=== PATIENT | male | born 1965 ===

== ENCOUNTER 2018-07-10 07:45 | Inpatient (IN) | payer BC, OTHER ==
[2018-07-10] VITALS (14 sets, daily range): BP systolic 116–142; BP diastolic 63–96
[~2018-07-10] VITALS: Ht 175.3 cm; Wt 102.1 kg
[2018-07-10] MEDS ORDERED: Bacitracin 50000 Units Vial ONE ×2 (07:58→12:03)
[2018-07-10] MEDS ORDERED: NeoSporin Gu Irrig 1ml Amp IRRIG ONE ×2 (07:58→12:04)
[2018-07-10] MEDS ORDERED: LISINOPRIL20 MG ORAL (08:35)
[2018-07-10] MEDS ORDERED: BISOPROLOL-HCT1 EAC1 PO (08:35)
[2018-07-10] MEDS ORDERED: CRESTOR10 M2 ORAL (08:35)
--- NOTE | 2018-07-10 09:25 | Anethesia Preoperative Eval ---
Anesthesia Pre-op PMH/ROS General Date of Evaluation: July 10, 2018 Anesthesiologist: Ziyad ASA Score: ASA 2 Mallampati Score Class I : Soft palate, uvula, fauces, pillars visible Class II: Soft palate, uvula, fauces visible Class III: Soft palate, base of uvula visible Class IV: Only hard plate visible Mallampati Classification: Class II Surgeon: Chris Diagnosis: Left knee OA Surgical Procedure: Left TKR Anesthesia History: none Family History: no anesthesia problems Allergies: Coded Allergies: No Known Allergies (Unverified , 07/10/18) Medications: see eMAR Patient NPO?: Yes NPO Date: July 09, 2018 NPO Time: 2300 Past Medical History Cardiovascular: Reports: HTN, other - HLD; Denies: CAD, MT, valve dz, arrhythmia Pulmonary: Denies: asthma, COPD, FESTUS, other Gastrointestinal/Genitourinary: Denies: GERD, CRI, ESRD, other Neurologic/Psychiatric: Denies: dementia, CVA, depression/anxiety, TIA, other Endocrine: Denies: DM, hypothyroidism, steroids, other HEENT: Denies: cataract (L), cataract (R), glaucoma, MARY'S IGLOO (L), MARY'S IGLOO (R), other Hematology/Immune: Denies: anemia, DVT, bleeding disorder, other Musculoskeletal/Integumentary: Reports: OA, other - LBP; Denies: RA, DJD, DDD, edema PSxH Narrative: Left IHR, lap appy, left knee sx Anesthesia Pre-op Phys. Exam Physician Exam Last Vital Signs Date Time Temp Pulse Resp B/P (MAP) Pulse Ox O2 Delivery O2 Flow Rate FiO2 07/10/18 08:38 97.2 66 18 142/96 (111) 99 07/10/18 08:26 Room Air Constitutional: NAD Cardiovascular: RRR Respiratory: CTA Airway Exam Mallampati Score: Class II MO: full ROM: full Teeth: intact Anesthesia Pre-op A/P Labs see chart Studies Pre-op Studies: EKG - sr Risk Assessment & Plan Assessment: ASA II Plan: GA with SAB Status Change Before Surgery: No Pre-Antibiotics Drug: Ancef 2g Given Within 1 Hr of Incision: Yes Jeniffer Carlos MD July 10, 2018 09:25
[2018-07-10] MEDS ORDERED: Lidocaine 1% MPF 10mg/ml 5ml ONE (09:26)
[2018-07-10] MEDS ORDERED: Midazolam 2mg/2ml Inj ONE ×2 (09:26→10:03)
[2018-07-10] MEDS ORDERED: Propofol 200mg/20ml IV ONE (09:26)
[2018-07-10] MEDS ORDERED: fentaNYL 100 mcg/2 mL IV ONE (09:26)
[2018-07-10] MEDS ORDERED: Morphine Sulfate PF 10 ML ONE (09:40)
[2018-07-10] MEDS ORDERED: cloNIDine 1000mcg/10ml inj ONE (09:40)
[2018-07-10] MEDS ORDERED: NS Irrig 1000ml IRRIG ONE ×2 (09:45→12:08)
--- NOTE | 2018-07-10 09:59 | Pre-Procedure Note/Attestation ---
Pre-Procedure Note/Attestation Complete Prior to Procedure Planned Procedure: left Procedure Narrative: left knee replacmenet Indications for Procedure Pre-Operative Diagnosis: left knee arthritis Attestation I attest that I discussed the nature of the procedure; its benefits; risks and complications; and alternatives (and the risks and benefits of such alternatives ), prior to the procedure, with the patient (or the patient's legal advertising account representative). I attest that, if there was a reasonable possibility of needing a blood transfusion, the patient (or the patient's legal advertising account representative) was given the [facility] [place] [facility] standardized written summary, pursuant to the [place] Blood Safety Act ([place] Health and Safety Code # 1645, as amended). I attest that I re-evaluated the patient just prior to the surgery and that there has been no change in the patient's H&P, except as documented below: Yaya Perez MD July 10, 2018 09:59
[2018-07-10] MEDS ORDERED: Morphine Sulfate 2mg/ml Inj(IV/IM USE ONLY) IVP PRN (10:00)
[2018-07-10] MEDS ORDERED: Sterile Water Irrig 1000ml IRRIG ONE (10:00)
[2018-07-10] MEDS ORDERED: LR 1000ml ONE (10:00)
--- NOTE | 2018-07-10 10:00 | Brief Operative Note ---
Immediate Post Operative Note Operative Note Pre-op Diagnosis: left knee arthritis Procedure: left knee arthritis Post-op Diagnosis: left knee arthritis Post-op Diagnosis: same as pre-op Findings: consistent w/pre-op dx studies Surgeon: marcin Anesthesia: general Specimen: none Complications: none Condition: stable Fluids: y Estimated Blood Loss: minimal Implant(s) used?: Yes Yaya Perez MD July 10, 2018 10:00
[2018-07-10] MEDS ORDERED: LR 1000ml 1,000 ML IVLG SCH (10:34)
[2018-07-10] MEDS ORDERED: Dexamethasone 4mg/ml vial ONE (10:35)
[2018-07-10] MEDS ORDERED: Metoclopramide 10mg/2ml Inj ONE (10:35)
[2018-07-10] MEDS ORDERED: Ketorolac 30mg Inj ONE (10:35)
[2018-07-10] MEDS ORDERED: fentaNYL 100 mcg/2 mL IV PRN (10:45)
[2018-07-10] MEDS ORDERED: Midazolam 2mg/2ml Inj IVP PRN (10:45)
[2018-07-10] MEDS ORDERED: Metoclopramide 10mg/2ml Inj IVP PRN (10:45)
[2018-07-10] MEDS ORDERED: DiphenhydrAMINE 50mg/ml Inj IVP PRN (10:45)
[2018-07-10] MEDS ORDERED: LORazepam Inj 2mg/ml 1ml IV PRN (10:45)
[2018-07-10] MEDS ORDERED: Hydromorphone 0.5mg/0.5ml inj IVP PRN (10:45)
--- NOTE | 2018-07-10 12:02 | Diagnostic Imaging Report ---
Indication: Preoperative, pain Technique: 3 views of the left knee Comparison: None Findings: Surgical screws are seen in the distal femur and proximal tibia, consistent with prior anterior cruciate ligament repair. There is extensive degenerative narrowing involving the medial, lateral, and patellofemoral compartments as well as extensive osteophyte formation. No definite suprapatellar effusion. No acute fractures. No dislocations. Impression: No definite acute process Extensive degenerative changes, as described Postsurgical changes, as described
--- NOTE | 2018-07-10 12:54 | Immediate Post-Op Evaluation ---
Immediate Post-Op Evalulation Immediate Post-Op Evalulation Procedure: Left TKR Date of Evaluation: July 10, 2018 Time of Evaluation: 12:54 IV Fluids: 1.8L Blood Products: 0 Estimated Blood Loss: 150 Urinary Output: 300 Blood Pressure Systolic: 120 Blood Pressure Diastolic: 68 Pulse Rate: 70 Respiratory Rate: 16 O2 Sat by Pulse Oximetry: 100 Temperature (Fahrenheit): 97.1 Pain Score (1-10): 0 Nausea: No Vomiting: No Complications 0 Patient Status: awake, reacts, patent, none Hydration Status: adequate Drug: Ancef 2g Given Within 1 Hr of Incision: Yes Jeniffer Carlos MD July 10, 2018 12:54
--- NOTE | 2018-07-10 14:32 | NUR ---
NURSE NOTES: Patient has good circulation on bilateral lower extremities, capillary refill<3 seconds, is able to feel sensation above the mid thigh, no movement yet.
--- NOTE | 2018-07-10 14:32 | NUR ---
NURSE NOTES: Patient arrived on unit via hospital bed. Stable. Denies pain or SOB. IV fluids running as ordered. Skin is clean, dry, and intact. Surgical dressing clean, dry, and intact. Knee immobilizer in place, ice pack on surgical site as ordered. Patient is in good spirits. Patient oriented to room, unit, and call light. Patient is in encouraged to use call light for assistance, verbalized understanding. Patient's son has all belongings. Patient is in bed in locked and lowest position with call light within reach. Will continue to monitor.
--- NOTE | 2018-07-10 14:50 | NUR ---
NURSE NOTES: Spoke to Dr. Moreno on the phone, he will be in to see patient today and will give orders after he rounds.
--- NOTE | 2018-07-10 15:33 | NUR ---
NURSE NOTES: CPM in place as ordered. Will continue to monitor patient.
--- NOTE | 2018-07-10 15:37 | NUR ---
NURSE NOTES: Patient tolerated liquids, will advance to regular as tolerated.
--- NOTE | 2018-07-10 16:00 | NUR ---
NURSE NOTES: Capillary refill <3 seconds on bilateral lower extremities. Patient can feel sensation above mid thigh. Patient unable to move lower extremities. PT will see patient.
--- NOTE | 2018-07-10 16:00 | NUR ---
NURSE NOTES: Capillary refill <3 seconds on bilateral lower extremities. Patient has sensation in bilateral lower extremities. Patient is able to move both feet and legs. Will continue CPM. Addendum: 07/10/18 at 1746 by SAÚL BOYD RN wrong time, Note for 07/10/18 at 17:45.
[2018-07-10] MEDS: D5 1/2NS w/KCl 20mEq 1,000 ML IV SCH (16:14)
--- NOTE | 2018-07-10 16:55 | NUR ---
P.T Note: Order for CPM received POD #0 at 0-60 deg. Neuro checked : anaesthesia still in effect as patient reports of BLE feeling " numb and no power to move" . Assisted patient into sitting and dangling position at EOB prior to putting the CPM. Pt unable tolerate sitting not more than 2 min due to c/o dizziness and nausea but no vomiting episode . Pt assisted back to bed : vitals taken and were stable. dizziness and nausea subsided over time. CPM set up to 0-60 deg. to L knee and tolerating well.CPM endorsed to nursing at the end of P.T shift. CPM to be removed after 4-6 hrs of use.
[2018-07-10] MEDS: ceFAZolin sod 1 GM in D5W 55 ML IV SCH (17:52)
--- NOTE | 2018-07-10 18:01 | NUR ---
CASE MANAGEMENT:REVIEW 53 YR OLD MALE HERE FOR ELECTIVE SURGERY SI: LT KNEE ARTHRITIS IS: TO SURGERY FOR: TOTAL KNEE REPLACEMENT : TO MED/SURG [facility]
--- NOTE | 2018-07-10 18:03 | Diagnostic Imaging Report ---
Indication: Postoperative; history knee pain Technique: 3 views of the left knee Comparison: 07/10/2017 Findings: Interim placement of a left knee arthroplasty, with satisfactory anatomic alignment. There is a surgical drain in place. There are overlying skin dontae. Retained air from the surgical exposure is seen within soft tissues Impression: Postoperative left knee. No unusual features
--- NOTE | 2018-07-10 18:55 | NUR ---
CHARGE NURSE NOTE: 5 hrs hemovac. output 400 ml. was called, message left.
--- NOTE | 2018-07-10 19:13 | NUR ---
NURSE NOTES: Spoke to Dr. Vega on the phone about hemovac output. said it is an expected amount due to the procedure and that the patient will be expected to have a lot of output. No new orders. Patient is stable.
--- NOTE | 2018-07-10 19:30 | NUR ---
HAND-OFF: Report given to Nhan RN. Patient is stable.
--- NOTE | 2018-07-10 20:05 | NUR ---
NURSE NOTES: Pt is in bed, awake and alert. No acute distress noted. Pt's Hemovac on left knee surgical site is draining heavily, sanguinous output ( 400ml 0ver last 5 hours). Dressing is stained with scant amount of blood. Dr. Rodgers and Dr. Moreno notified. Dr. Moreno came to see pt. Ordered cbc and cmp, lab called to draw blood. Dressing will be monitored. Pt is off CPM machine now and knee immobilizer applied, CSM intact, pt able to wiggle toes. Pt on room air. No pain reported. Pt is instructed to call for assistance before getting out of bed, bed locked low in position,side rails up and call light within reach. Pt will be monitored.
--- NOTE | 2018-07-10 20:07 | Cardiology Progress Note ---
Assessment/Plan Assessment/Plan monitor for bleeding repeat cbc tonite and in am watch bp told to stand up slowly in am [id number] Objective Last 24 Hour Vital Signs Date Time Temp Pulse Resp B/P (MAP) Pulse Ox O2 Delivery O2 Flow Rate FiO2 07/10/18 16:00 98.0 74 17 121/75 (90) 96 07/10/18 15:00 97.7 70 17 127/78 (94) 99 07/10/18 14:30 97.6 66 17 127/75 (92) 99 07/10/18 14:15 97.4 64 18 119/72 99 Nasal Cannula 3 07/10/18 14:00 61 15 116/69 100 Nasal Cannula 3 07/10/18 13:45 60 16 120/67 100 Nasal Cannula 3 07/10/18 13:30 64 13 117/63 100 Nasal Cannula 3 07/10/18 13:20 65 15 123/70 100 Simple Mask 6 07/10/18 13:10 68 16 120/72 100 Simple Mask 6 07/10/18 13:00 71 14 122/70 100 Simple Mask 6 07/10/18 12:55 69 15 117/69 100 Simple Mask 6 07/10/18 12:54 70 16 100 07/10/18 12:49 97.1 70 16 120/68 100 Simple Mask 6 07/10/18 08:38 97.2 66 18 142/96 (111) 99 07/10/18 08:26 Room Air Ilia Moreno MD July 10, 2018 20:07
[2018-07-10 21:25] LABS: HEMATOCRIT 34.8 % (42.0-52.0); HEMOGLOBIN 12.5 G/DL (14.2-18.0); MEAN CORPUSCULAR VOLUME 81 FL (80-99); PLATELET COUNT 136 K/UL (150-450); RED BLOOD COUNT 4.29 M/UL (4.70-6.10); RED CELL DISTRIBUTION WIDTH 11.2 % (11.6-14.8); WHITE BLOOD COUNT 12.5 K/UL (4.8-10.8)
--- NOTE | 2018-07-10 21:30 | Consultation ---
DATE OF CONSULTATION: 07/10/2018 CARDIOLOGY CONSULTATION CONSULTING PHYSICIAN: Ilia Moreno M.D. REFERRING PHYSICIAN: Yaya Perez M.D. REASON FOR REFERRAL: Postoperative medical care. HISTORY OF PRESENT ILLNESS: This is a young gentleman 53-year-old who has undergone knee surgery by Dr. Vega and is being seen postoperatively. Denies any chest pain or shortness of breath. No palpitations. He was dizzy when he first tried to get up earlier today and subsequently when he sat up to eat, he was also dizzy and nauseated but no palpitation. No dizziness. No prior heart condition. PAST MEDICAL HISTORY: Positive for high blood pressure and high cholesterol. Denies others. ALLERGIES: No allergies to medications. SOCIAL HISTORY: He does not smoke, drink, or use drugs. REVIEW OF SYSTEMS: GASTROINTESTINAL: Did have some nausea. No vomiting. No bowel movements yet. GENITOURINARY: Negative. PULMONARY: Negative. CONSTITUTIONAL: Negative. NEUROLOGICAL: Negative. In fact, he feels much better now than he did prior to the surgery probably because of effects of the pain medication. PHYSICAL EXAMINATION: GENERAL: Shows to be a young gentleman, in no respiratory distress, lying down flat. NECK: Supple. No jugular venous distention. LUNGS: Clear to auscultation. CARDIAC: S1 is normal. S2 is normal. Regular rate and rhythm. No heaves, thrills, gallops, or rubs are noted. ABDOMEN: Soft, nontender. Positive bowel sounds. EXTREMITIES: There is no clubbing, cyanosis, edema. Left leg is dressed. There is some area of blood overlying the knee area. Also noted some bloody fluid in the drain. NEUROLOGICAL: Awake and responsive. ASSESSMENT AND PLAN: 1. Left knee osteoarthritis, end-stage now status post arthroplasty. 2. Hypertension. 3. Hyperlipidemia. 4. Postoperative bleeding. The patient will be monitored. Hemoglobin will be serially evaluated. The patient will have chemistries tonight as well as tomorrow morning. His drain is being monitored by the nursing staff and will contact with Dr. Vega, who is aware of bleeding. DVT prophylaxis will be initiated once the patient's bleeding status improves hopefully within next 24 hours or so. His usual medications from home will be continued as needed for the time being including his blood pressure medication once his blood pressure is stable and increase. Ilia Moreno M.D. DR: Negar JOB#: [id number] CC:
[2018-07-10 21:42] LABS: ALANINE AMINOTRANSFERASE 22 U/L (12-78); ALBUMIN 3.4 G/DL (3.4-5.0); ALBUMIN/GLOBULIN RATIO 1.4 (1.0-2.7); ALKALINE PHOSPHATASE 42 U/L (46-116); ANION GAP 5 mmol/L (5-15); ASPARTATE AMINO TRANSFERASE 22 U/L (15-37); BILIRUBIN,TOTAL 0.5 MG/DL (0.2-1.0); BLOOD UREA NITROGEN 21 mg/dL (7-18); CALCIUM 8.3 MG/DL (8.5-10.1); CARBON DIOXIDE 26 MMOL/L (21-32); CHLORIDE 103 MMOL/L (98-107); CREATININE 0.9 MG/DL (0.55-1.30); POTASSIUM 4.2 MMOL/L (3.5-5.1); SODIUM 134 MMOL/L (136-145)
[2018-07-11] VITALS: BP 143/84
--- NOTE | 2018-07-11 | NUR ---
NURSE NOTES: Pt is in bed, awake and verbal. No acute distress noted. Hemovac out put has slowed now, 50ml sanguinous output. Surgical site has no further bleeding, dressing is intact. HGB 12.5. Pt reports feeling " great". Pt is able to wiggle toes. Knee immobilizer in place. Pt has Physical therapy in the morning.
[2018-07-11] MEDS: ceFAZolin sod 1 GM in D5W 55 ML IV SCH (00:44)
[2018-07-11 04:00] VITALS: BP 124/80
[2018-07-11] MEDS: D5 1/2NS w/KCl 20mEq 1,000 ML IV SCH ×2 (05:26→20:16)
--- NOTE | 2018-07-11 06:00 | NUR ---
NURSE NOTES: Total Hemovac output during this shift is 100ml. Dressing dry and intact.
[2018-07-11 06:39] LABS: INR 1.1 (0.9-1.1)
[2018-07-11 06:47] LABS: ANION GAP 7 mmol/L (5-15); BLOOD UREA NITROGEN 18 mg/dL (7-18); CALCIUM 8.4 MG/DL (8.5-10.1); CARBON DIOXIDE 26 MMOL/L (21-32); CHLORIDE 103 MMOL/L (98-107); POTASSIUM 4.3 MMOL/L (3.5-5.1); SODIUM 136 MMOL/L (136-145)
[2018-07-11 07:00] LABS: BASOPHILS % (AUTO) 0.1 % (0.0-2.0); HEMATOCRIT 31.2 % (42.0-52.0); LYMPHOCYTES % (AUTO) 10.1 % (20.0-45.0); MEAN CORPUSCULAR VOLUME 84 FL (80-99); MONOCYTES % (AUTO) 12.2 % (1.0-10.0); NEUTROPHILS % (AUTO) 77.6 % (45.0-75.0); PLATELET COUNT 138 K/UL (150-450); RED BLOOD COUNT 3.72 M/UL (4.70-6.10); RED CELL DISTRIBUTION WIDTH 11.8 % (11.6-14.8); WHITE BLOOD COUNT 12.3 K/UL (4.8-10.8)
[2018-07-11] MEDS: HYDROcodone/Acetamin 7.5/325 tab ORAL PRN (07:01)
--- NOTE | 2018-07-11 07:20 | NUR ---
HAND-OFF: Report given to Anthony Ba RN.
--- NOTE | 2018-07-11 07:30 | NUR ---
NURSE NOTES: Received report from Nhan RN. Patient is awake alert and oriented x4, no acute distress noted. IV intact, running IVF per order. Patient is reporting pain is well managed at this time. Ice pack applied to left knee. Noted staining on left knee dressing, per report staining is from post-operative bleeding from yesterday (07-10-18). No fresh blood noted. Hemovac compressed. Side rails upx3, bed low and locked, call light in reach. Will continue to monitor.
[2018-07-11 08:00] VITALS: BP 138/96
--- NOTE | 2018-07-11 08:32 | 48 Hour Post Anesthesia Eval ---
Post Anesthesia Evaluation Procedure: Left TKR Date of Evaluation: July 11, 2018 Airway: patent Nausea: No Vomiting: No Pain Intensity: 2 Hydration Status: adequate Cardiopulmonary Status: at baseline Mental Status/LOC: patient returned to baseline Post-Anesthesia Complications: 0 Follow-up care needed: N/A - further care as per [facility] team Jeniffer Carlos MD July 11, 2018 08:32
--- NOTE | 2018-07-11 08:48 | NUR ---
NURSE NOTES: Called Dr. Moreno and informed MD of patient's platelet count and elevated WBC. MD stated ok to give lovenox as ordered. MD also ordered to d/c schulz catheter. Will enter order and carry out.
[2018-07-11] MEDS ORDERED: Enoxaparin 40mg Inj SUBQ SCH (09:00)
--- NOTE | 2018-07-11 09:00 | NUR ---
NURSE NOTES: Anderson catheter removed per MD order. Patient tolerated well. Will follow up to make sure patient voids within 4-6 hours.
--- NOTE | 2018-07-11 10:11 | NUR ---
P.T Note: P.T evaluation completed and treatment initiated per TKR protocol. Pt is alert, O x4 , pleasant and cooperative. Pt had no c/o major pain but soreness on L the L knee rated as 2/10. Neuro checked: 100% return motor and sensory on BLE from anesthetics. Vitals stable. NO c/o nausea/dizziness. Pt currently require SBA X 1 for all bed mobility , transfers and gait/ambulation activities using the FFW. Educated on TKR exercise protocol, safety and proper mobility techniques with good return demonstration. Pt will be seen BID daily until NC. Recommend home P.T and eventually OP rehab with DME to include FWW and raised toilet seat at NC. Thank you for this referral.
[2018-07-11 12:00] VITALS: BP 143/90
[2018-07-11] MEDS: Morphine Sulfate 4mg/ml Inj (IV USE ONLY) IVP PRN ×3 (12:50→22:25)
--- NOTE | 2018-07-11 15:00 | NUR ---
NURSE NOTES: Patient voided clear, yellow urine. No difficulty with voiding reported.
--- NOTE | 2018-07-11 15:48 | NUR ---
NURSE NOTES: Walked into patient's room and noted that hemovac was sitting on table, patient reports hemovac came out. Patient stated he does not know how hemovac came out. Called the office of Dr. Perez and reported findings to dental office coordinator Mary. water engineer stated she will inform Dr. Perez and MD will call back. Callback number given. Will await callback with further orders.
[2018-07-11 16:00] VITALS: BP 155/93
--- NOTE | 2018-07-11 19:39 | NUR ---
NURSE NOTES: Did not receive callback from Dr. Perez regarding hemovac coming out. Called Dr. Moreno and reported that hemovac came out today sometime between 1530 and 1600. ordered for a STAT CBC and stated he will attempt to contact Dr. Perez. Will endorse to retail shift leader nurse.
--- NOTE | 2018-07-11 19:54 | NUR ---
HAND-OFF: Report given to Chasity AMARAL. Patient is in stable stable condition. Endorsed plan of care and orders from Dr. Moreno.
[2018-07-11 20:40] LABS: BASOPHILS % (AUTO) 0.5 % (0.0-2.0); HEMATOCRIT 27.2 % (42.0-52.0); HEMOGLOBIN 9.9 G/DL (14.2-18.0); LYMPHOCYTES % (AUTO) 16.7 % (20.0-45.0); MEAN CORPUSCULAR VOLUME 83 FL (80-99); NEUTROPHILS % (AUTO) 70.7 % (45.0-75.0); PLATELET COUNT 122 K/UL (150-450); RED BLOOD COUNT 3.29 M/UL (4.70-6.10); RED CELL DISTRIBUTION WIDTH 11.7 % (11.6-14.8); WHITE BLOOD COUNT 9.2 K/UL (4.8-10.8)
--- NOTE | 2018-07-11 20:41 | Cardiology Progress Note ---
Assessment/Plan Assessment/Plan 1. Left knee osteoarthritis, end-stage now status post arthroplasty. 2. Hypertension. 3. Hyperlipidemia. 4. Postoperative bleeding. wound vac slipped out dr john aware i just discussed with him personally as well dc lovenox repeat cbc pneumatic stockign / boots d/w rn Subjective Cardiovascular: Denies: chest pain, lightheadedness, palpitations Respiratory: Denies: shortness of breath Gastrointestinal/Abdominal: Denies: abdominal pain Genitourinary: Denies: burning Subjective knee pain Objective Last 24 Hour Vital Signs Date Time Temp Pulse Resp B/P (MAP) Pulse Ox O2 Delivery O2 Flow Rate FiO2 07/11/18 18:28 98.0 07/11/18 16:00 98.0 100 20 155/93 (113) 100 07/11/18 12:00 97.9 91 20 143/90 (107) 100 07/11/18 09:00 Room Air 07/11/18 08:00 98.2 78 20 138/96 (110) 99 07/11/18 04:00 97.4 74 16 124/80 (95) 96 07/11/18 00:00 97.9 79 16 143/84 (103) 94 General Appearance: no apparent distress, alert Neck: supple Cardiovascular: normal rate Respiratory/Chest: lungs clear Abdomen: normal bowel sounds, non tender, soft Extremities: no swelling, other - left leg dressing seem clean Intake and Output 07/10/18 07/11/18 19:00 07:00 Intake Total 2175 ml 975 ml Output Total 1525 ml Balance 650 ml 975 ml IV Total 2175 ml 975 ml Output Urine Total 675 ml Drainage Total 700 ml Estimated Blood Loss 150 ml # Voids 1 Laboratory Tests Test 07/10/18 21:10 07/11/18 05:20 07/11/18 20:15 White Blood Count 12.5 K/UL (4.8-10.8) H 12.3 K/UL (4.8-10.8) H Pending Red Blood Count 4.29 M/UL (4.70-6.10) L 3.72 M/UL (4.70-6.10) L Pending Hemoglobin 12.5 G/DL (14.2-18.0) L 11.0 G/DL (14.2-18.0) L Pending Hematocrit 34.8 % (42.0-52.0) L 31.2 % (42.0-52.0) L Pending Mean Corpuscular Volume 81 FL (80-99) 84 FL (80-99) Pending Mean Corpuscular Hemoglobin 29.0 PG (27.0-31.0) 29.5 PG (27.0-31.0) Pending Mean Corpuscular Hemoglobin Concent 35.8 G/DL (32.0-36.0) 35.2 G/DL (32.0-36.0) Pending Red Cell Distribution Width 11.2 % (11.6-14.8) L 11.8 % (11.6-14.8) Pending Platelet Count 136 K/UL (150-450) L 138 K/UL (150-450) L Pending Mean Platelet Volume 5.6 FL (6.5-10.1) L 6.6 FL (6.5-10.1) Pending Neutrophils (%) (Auto) % (45.0-75.0) 77.6 % (45.0-75.0) H Pending Lymphocytes (%) (Auto) % (20.0-45.0) 10.1 % (20.0-45.0) L Pending Monocytes (%) (Auto) % (1.0-10.0) 12.2 % (1.0-10.0) H Pending Eosinophils (%) (Auto) % (0.0-3.0) 0.0 % (0.0-3.0) Pending Basophils (%) (Auto) % (0.0-2.0) 0.1 % (0.0-2.0) Pending Differential Total Cells Counted 100 Neutrophils % (Manual) 92 % (45-75) H Lymphocytes % (Manual) 7 % (20-45) L Monocytes % (Manual) 1 % (1-10) Eosinophils % (Manual) 0 % (0-3) Basophils % (Manual) 0 % (0-2) Band Neutrophils 0 % (0-8) Platelet Estimate Decreased L Platelet Morphology Normal Red Blood Cell Morphology Normal Sodium Level 134 MMOL/L (136-145) L 136 MMOL/L (136-145) Potassium Level 4.2 MMOL/L (3.5-5.1) 4.3 MMOL/L (3.5-5.1) Chloride Level 103 MMOL/L (98-107) 103 MMOL/L (98-107) Carbon Dioxide Level 26 MMOL/L (21-32) 26 MMOL/L (21-32) Anion Gap 5 mmol/L (5-15) 7 mmol/L (5-15) Blood Urea Nitrogen 21 mg/dL (7-18) H 18 mg/dL (7-18) Creatinine 0.9 MG/DL (0.55-1.30) 1.0 MG/DL (0.55-1.30) Estimat Glomerular Filtration Rate > 60 mL/min (>60) > 60 mL/min (>60) Glucose Level 179 MG/DL (74-106) H 129 MG/DL (74-106) H Calcium Level 8.3 MG/DL (8.5-10.1) L 8.4 MG/DL (8.5-10.1) L Total Bilirubin 0.5 MG/DL (0.2-1.0) Aspartate Amino Transf (AST/SGOT) 22 U/L (15-37) Alanine Aminotransferase (ALT/SGPT) 22 U/L (12-78) Alkaline Phosphatase 42 U/L (46-116) L Total Protein 5.9 G/DL (6.4-8.2) L Albumin 3.4 G/DL (3.4-5.0) Globulin 2.5 g/dL Albumin/Globulin Ratio 1.4 (1.0-2.7) Prothrombin Time 11.8 SEC (9.30-11.50) H Prothromb Time International Ratio 1.1 (0.9-1.1) Ilia Moreno MD July 11, 2018 20:41
--- NOTE | 2018-07-11 20:46 | NUR ---
NURSE NOTES:Patient seen by DR Moreno with new orders.
[2018-07-11] MEDS: Lisinopril 10mg tab ORAL SCH (21:08)
--- NOTE | 2018-07-11 21:27 | NUR ---
NURSE NOTES:Call Ilia Bangura read the Lab result WBC 9.2 Hgb 9.9 HCT 27.2. with new orders repeat cbc in am
[2018-07-12] MEDS: Morphine Sulfate 4mg/ml Inj (IV USE ONLY) IVP PRN ×3 (03:12→12:45)
--- NOTE | 2018-07-12 05:12 | NUR ---
NURSE NOTES: Patient left knee dressing changed .
[2018-07-12 06:30] LABS: BASOPHILS % (AUTO) 0.3 % (0.0-2.0); HEMATOCRIT 27.9 % (42.0-52.0); HEMOGLOBIN 9.7 G/DL (14.2-18.0); LYMPHOCYTES % (AUTO) 11.1 % (20.0-45.0); MEAN CORPUSCULAR VOLUME 84 FL (80-99); MONOCYTES % (AUTO) 12.8 % (1.0-10.0); NEUTROPHILS % (AUTO) 75.8 % (45.0-75.0); PLATELET COUNT 127 K/UL (150-450); RED BLOOD COUNT 3.31 M/UL (4.70-6.10); WHITE BLOOD COUNT 10.4 K/UL (4.8-10.8)
[2018-07-12 06:31] LABS: INR 1.1 (0.9-1.1)
--- NOTE | 2018-07-12 07:45 | NUR ---
NURSE NOTES: Received report from Chasity AMARAL. Patient is awake alert and oriented x4, no acute distress noted. Patient is reporting pain in left knee, will medicate per order. Noted stain on left knee dressing, circled, dated and timed. IV intact and asymptomatic. SCD on right leg, ice on left knee. Side rails upx3, bed low and locked, call light in reach. Will continue to monitor.
--- NOTE | 2018-07-12 07:46 | NUR ---
HAND-OFF: Report given to Tara Randolph
[2018-07-12 08:00] VITALS: BP 135/88
[2018-07-12] MEDS: Lisinopril 10mg tab ORAL SCH (08:58)
--- NOTE | 2018-07-12 11:50 | NUR ---
CASE MANAGEMENT:REVIEW 07/12/18 SI: POD #2 S/P LEFT KNEE ARTHROPLASTY H/H-9.7/27.9 PLT-127 IS: LISINOPRIL PO QD IV MORPHINE Q4HRS PRN : MED/SURG STATUS 3 EAST DCP; FROM HOME
[2018-07-12 12:00] VITALS: BP 123/81
--- NOTE | 2018-07-12 12:50 | NUR ---
NURSE NOTES: Noted increased staining on left knee dressing. Drainage is serosanguinous, no foul odor noted. Circled staining. Left knee remains mildly swollen, no swelling in calf noted, Homans sign negative bilaterally. Will continue to monitor.
--- NOTE | 2018-07-12 14:49 | General Progress Note ---
Progress Note Progress Note doing well neurovasc intact hemovac out knee slight sweeling dressing change today continue therapy Yaya Perez MD July 12, 2018 14:49
[2018-07-12] MEDS ORDERED: Ketorolac 30mg Inj IV ONE (15:00)
[2018-07-12] MEDS ORDERED: Ketorolac 30mg Inj IV SCH (15:15)
--- NOTE | 2018-07-12 15:58 | NUR ---
HAND-OFF: Report given to Reyna NUÑEZ. Patient is in stable condition. Endorsed plan of care and endorsed toradol reassessment.
[2018-07-12 16:00] VITALS: BP 134/75
--- NOTE | 2018-07-12 16:00 | NUR ---
NURSE NOTES: Report received from Tara NUÑEZ, rounds made. Patient resting in semi-fowlers position in bed. No c/o of SOB on RA, no NV. Pain to left knee 07/22, denies need for pain medication at this time. Ice pack to left knee. Bilateral SCDs on. CMS +, skin warm, wiggles, pedal pulses palpable, no NT. Left knee dressing with shadow drainage, outlined. Encouraged IS. Reinforced call light. Bed in lowest position, will continue to monitor.
[2018-07-12] MEDS: HYDROcodone/Acetamin 7.5/325 tab ORAL PRN ×2 (18:46→22:36)
--- NOTE | 2018-07-12 19:30 | Cardiology Progress Note ---
Assessment/Plan Assessment/Plan 1. Left knee osteoarthritis, end-stage now status post arthroplasty. 2. Hypertension. 3. Hyperlipidemia. 4. Postoperative bleeding. wound vac slipped out yes dr dora milleruated pt today dc lovenox to resum tomorrow if hgb stable repeat cbcin , stablizzed as of this am pneumatic stockign / boots d/w rn bp loks good mild lwo greade fever Subjective Cardiovascular: Reports: lightheadedness - min ; Denies: chest pain, palpitations Respiratory: Denies: shortness of breath Gastrointestinal/Abdominal: Reports: constipated; Denies: abdominal pain Genitourinary: Denies: burning Subjective knee pain is better after nsaid he says walk some Objective Last 24 Hour Vital Signs Date Time Temp Pulse Resp B/P (MAP) Pulse Ox O2 Delivery O2 Flow Rate FiO2 07/12/18 16:00 98.2 94 20 134/75 (94) 96 07/12/18 13:39 99.1 07/12/18 12:00 99.1 100 20 123/81 (95) 98 07/12/18 09:00 Room Air 07/12/18 08:58 135/88 07/12/18 08:00 99.4 104 20 135/88 (104) 97 07/11/18 21:08 143/91 07/11/18 21:00 Room Air General Appearance: no apparent distress, alert Neck: supple Cardiovascular: normal rate Respiratory/Chest: lungs clear Abdomen: normal bowel sounds, non tender, soft Extremities: no swelling - dressed left leg Intake and Output 07/11/18 07/12/18 19:00 07:00 Intake Total 2405 ml 850 ml Output Total 1003 ml 700 ml Balance 1402 ml 150 ml Intake Oral 1580 ml 850 ml IV Total 825 ml Output Urine Total 803 ml 700 ml Drainage Total 200 ml # Voids 3 Laboratory Tests Test 07/11/18 20:15 07/12/18 05:25 White Blood Count 9.2 K/UL (4.8-10.8) 10.4 K/UL (4.8-10.8) Red Blood Count 3.29 M/UL (4.70-6.10) L 3.31 M/UL (4.70-6.10) L Hemoglobin 9.9 G/DL (14.2-18.0) L 9.7 G/DL (14.2-18.0) L Hematocrit 27.2 % (42.0-52.0) L 27.9 % (42.0-52.0) L Mean Corpuscular Volume 83 FL (80-99) 84 FL (80-99) Mean Corpuscular Hemoglobin 30.0 PG (27.0-31.0) 29.5 PG (27.0-31.0) Mean Corpuscular Hemoglobin Concent 36.2 G/DL (32.0-36.0) H 34.9 G/DL (32.0-36.0) Red Cell Distribution Width 11.7 % (11.6-14.8) 12.0 % (11.6-14.8) Platelet Count 122 K/UL (150-450) L 127 K/UL (150-450) L Mean Platelet Volume 5.8 FL (6.5-10.1) L 6.2 FL (6.5-10.1) L Neutrophils (%) (Auto) 70.7 % (45.0-75.0) 75.8 % (45.0-75.0) H Lymphocytes (%) (Auto) 16.7 % (20.0-45.0) L 11.1 % (20.0-45.0) L Monocytes (%) (Auto) 12.0 % (1.0-10.0) H 12.8 % (1.0-10.0) H Eosinophils (%) (Auto) 0.0 % (0.0-3.0) 0.0 % (0.0-3.0) Basophils (%) (Auto) 0.5 % (0.0-2.0) 0.3 % (0.0-2.0) Prothrombin Time 11.9 SEC (9.30-11.50) H Prothromb Time International Ratio 1.1 (0.9-1.1) Microbiology Date/Time Source Procedure Growth Status 07/10/18 08:15 Nasal Nares MRSA Culture - Final NO METHICILLIN RESISTANT STAPH AUREUS... Complete Ilia Moreno MD July 12, 2018 19:30
[2018-07-12 20:00] VITALS: BP 121/78
--- NOTE | 2018-07-12 20:20 | NUR ---
HAND-OFF: Report given to Neda NUÑEZ.
--- NOTE | 2018-07-12 20:20 | NUR ---
NURSE NOTES: Received report from JOAQUIN Orellana. Patient sleeping on and off. Alert and oriented. Dressing with slight increase in drainage as compared to previous demarkation, circled new drainage. See emar for pain medication. Applied icepack to left knee. Will continue to monitor.
[2018-07-13 00:45] VITALS: BP 123/77
[2018-07-13] MEDS: HYDROcodone/Acetamin 7.5/325 tab ORAL PRN ×4 (04:35→19:50)
[2018-07-13 06:46] LABS: INR 1.1 (0.9-1.1)
--- NOTE | 2018-07-13 07:30 | NUR ---
HAND-OFF: Report given to JOAQUIN Mitchell .
--- NOTE | 2018-07-13 07:59 | NUR ---
NURSE NOTES: AWAKE/ALERT.PAIN SCALE 5/10.LEFT KNEE DRESSING DRY AND INTACT WITH GOOD PEDAL PULSE. IN NO DISTRESS.
[2018-07-13] MEDS: Lisinopril 10mg tab ORAL SCH (08:34)
[2018-07-13] MEDS ORDERED: Milk of Magnesia 30ml Ud ORAL SCH (09:00)
[2018-07-13] MEDS: Docusate 100mg cap ORAL SCH ×2 (09:08→17:39)
[2018-07-13] MEDS ORDERED: Tubing IV Secondary IV ONE (09:48)
[2018-07-13 16:00] VITALS: BP 119/72
--- NOTE | 2018-07-13 16:50 | NUR ---
CASE MANAGEMENT:REVIEW 07/13/2018 SI: POD #3 S/P LEFT KNEE ARTHROPLASTY T 98.4 HR 94 RR 18 B/P 121/78 SATS 98% ON RA NO LABS TODAY IS: LISINOPRIL PO QD IV MORPHINE Q4HRS PRN : MED/SURG STATUS 3 EAST DCP; FROM HOME
--- NOTE | 2018-07-13 18:13 | Cardiology Progress Note ---
Assessment/Plan Assessment/Plan wi8ll restart lovenox Subjective Subjective the patient is resting comfortably in bed, asleep, woke up for one min, and said he is OK Objective Last 24 Hour Vital Signs Date Time Temp Pulse Resp B/P (MAP) Pulse Ox O2 Delivery O2 Flow Rate FiO2 07/13/18 16:00 98.1 93 16 119/72 (88) 99 07/13/18 13:33 98.2 07/13/18 08:34 137/87 07/13/18 08:13 Room Air 07/13/18 00:45 98.2 87 18 123/77 (92) 97 07/12/18 21:00 Room Air 07/12/18 20:00 98.4 94 18 121/78 (92) 98 General Appearance: no apparent distress EENT: PERRL/EOMI Neck: no JVD Rhythm: NSR Cardiovascular: normal rate Respiratory/Chest: lungs clear Abdomen: normal bowel sounds Extremities: other - left knee immobilised, dressing applied Intake and Output 07/12/18 07/13/18 19:00 07:00 Intake Total 840 ml 360 ml Output Total 1970 ml 1100 ml Balance -1130 ml -740 ml Intake Oral 840 ml 360 ml Output Urine Total 1970 ml 1100 ml # Voids 3 5 Laboratory Tests Test 07/13/18 06:08 Prothrombin Time 11.1 SEC (9.30-11.50) Prothromb Time International Ratio 1.1 (0.9-1.1) Diane Martinez MD Jul 13, 2018 18:13
[2018-07-13] MEDS ORDERED: Enoxaparin 40mg Inj SUBQ SCH (18:20)
--- NOTE | 2018-07-13 19:00 | NUR ---
NURSE NOTES: CONDITION STABLE. IN NO DISTRESS.
--- NOTE | 2018-07-13 19:35 | NUR ---
NURSE NOTES: Receive report from JOAQUIN Mitchell. Received pt laying in bed, AOX4, pain level 7/10 L knee. Will medicate for pain. Pt on CPM machine tolereted 0-40 degrees. Surgical dressing C/D/I. Neuro check wnl. No distress noted. IV L H # 18 patent and intact. Safety measures maintained. Will continue to monitor.
--- NOTE | 2018-07-13 19:35 | NUR ---
HAND-OFF: Report given to Elsa PERES RN.
[2018-07-13 20:00] VITALS: BP 125/77
--- NOTE | 2018-07-13 20:00 | NUR ---
NURSE NOTES: CPM machine removed. Applied rolled towel and place under L ankle. Pt tolerated, no complaints at this time. Will continue to monitor.
[2018-07-14] VITALS: BP 125/80
[2018-07-14] MEDS: HYDROcodone/Acetamin 7.5/325 tab ORAL PRN ×4 (00:13→16:02)
[2018-07-14 04:00] VITALS: BP 140/90
--- NOTE | 2018-07-14 04:15 | Operative Note - Dictated ---
DATE OF OPERATION: 07/13/2018 NOTE: POOR AUDIO PREOPERATIVE DIAGNOSES: 1. Left knee osteoarthritis post accident. 2. Prior and deformity of the left knee. POSTOPERATIVE DIAGNOSES: 1. Left knee osteoarthritis post accident. 2. Prior and deformity of the left knee. PROCEDURES: 1. Left total knee replacement, modifier 22 secondary to difficulty with Yuval . 2. Removal of hardware. 3. Reconstruction of the proximal tibia. SURGEON: Yaya Perez M.D. MAIL TRUCK DRIVER: Unknown. DENTAL FINANCIAL COORDINATOR: None. PREOPERATIVE NOTE: This is a pleasant gentleman, 32 years ago had an issue with his knee, had ACL reconstruction and screws put in his knee. He has been doing well and no issues up until recently when he had an accident, which caused an exacerbation of the preexisting condition that was quiescent and was quiet, his pain has been unrelenting 10/10, failed conservative treatments. Upon reviewing the x-ray and his clinical picture, we opted to do a knee replacement. I explained to him the surgery and the risks of infection, bleeding, anesthetic risks, neurovascular damage, DVT, PE, failure of the operation, mortality and morbidity from the above, not including the above. The patient agreed. Consents were obtained. OPERATIVE NOTE: Under the benefit of spinal anesthetic, general anesthesia, the patient was given a gram of Ancef. The patient's knee was prepped and draped in appropriate manner. There was a flexion contraction ligaments were stable. A midline incision was made, incised through subcutaneous tissue down the medial retinaculum, everted the patella, osteophytes were removed. There was significant synovitis synovectomy was done. We then proceeded to drill down the center of the femur on AP and lateral planes taking about mm due to flexion contracture. We sized the femur and after sizing of the femur made anterior cuts, posterior cuts, and chamfer cuts. With a 3-degree external rotation, the alignment was perfect . We drilled the lug holes level of difficulty. There was a screw from 32 years ago in the middle of the tibia by a surgical excision . So we pulled out the screw and to remove it. I created a small window on the anterior medial cortex in order to remove the screw. This was done successful. I then proceeded to the size the proximal tibia. The proximal tibia was sized and I then referenced it to the medial third of tibial tubercle. Short and patella, and reconstructed the cavitary defect and proximal tibia cement. We waited for the cement to cure . We irrigated the wound copiously with almost four liters of antibiotic impregnated solution. . There was minimal blood loss. No tourniquet was used. I closed the deep layer with #1 Vicryl, subcutaneous tissue with 2-0 Vicryl, skin with dontae. Drain was placed in. The patient went to recovery room in stable condition. Neurovascularly intact. No complications. Yaya Perez M.D. DR: LARRY JOB#: [id number] CC:
--- NOTE | 2018-07-14 07:35 | NUR ---
HAND-OFF: Report written and left for JOAQUIN Higuera. Pt in stable condition.
[2018-07-14 08:00] VITALS: BP 141/93
--- NOTE | 2018-07-14 08:10 | NUR ---
NURSE NOTES: Received written report from JOAQUIN Rizvi. Patient a/o x 4 lying on the bed. Denies any pain at this time. Left knee surgical dressing is stained a little and will be changed. Bed in lowest position, call light within reach. Will continue to monitor.
[2018-07-14] MEDS: Docusate 100mg cap ORAL SCH ×2 (09:10→17:32)
[2018-07-14] MEDS: Lisinopril 10mg tab ORAL SCH (09:10)
[2018-07-14] MEDS: Enoxaparin 40mg Inj SUBQ SCH (09:12)
[2018-07-14] MEDS: Morphine Sulfate 2mg/ml Inj(IV/IM USE ONLY) IVP PRN ×2 (11:41→21:26)
[2018-07-14 12:00] VITALS: BP 129/88
--- NOTE | 2018-07-14 12:10 | NUR ---
NURSE NOTES: Left surgical knee dressing was changed with 4x4 gauze and tegaderm.
--- NOTE | 2018-07-14 15:07 | Cardiology Progress Note ---
Assessment/Plan Assessment/Plan stable, recovering after surgery Subjective Subjective the patient is resting comfortably in bed, asleep, woke up for one min, and said he is OK Objective Last 24 Hour Vital Signs Date Time Temp Pulse Resp B/P (MAP) Pulse Ox O2 Delivery O2 Flow Rate FiO2 07/14/18 12:00 97.9 90 18 129/88 (102) 99 07/14/18 09:10 141/93 07/14/18 09:00 Room Air 07/14/18 08:00 97.8 90 18 141/93 (109) 99 07/14/18 04:00 98.8 88 18 140/90 (107) 100 07/14/18 00:00 99.2 93 18 125/80 (95) 99 07/13/18 21:00 Room Air 07/13/18 20:00 99.7 95 18 125/77 (93) 100 07/13/18 16:00 98.1 93 16 119/72 (88) 99 EENT: PERRL/EOMI Neck: supple Cardiovascular: normal rate Respiratory/Chest: no respiratory distress Extremities: other - left knee dressing Intake and Output 07/13/18 07/14/18 19:00 07:00 Intake Total 1050 ml 200 ml Output Total 700 ml 550 ml Balance 350 ml -350 ml Intake Oral 1050 ml 200 ml Output Urine Total 700 ml 550 ml # Voids 2 Laboratory Tests Test 07/14/18 04:40 Prothrombin Time 10.7 SEC (9.30-11.50) Prothromb Time International Ratio 1.0 (0.9-1.1) Diane Martinez MD Jul 14, 2018 15:07
--- NOTE | 2018-07-14 19:06 | NUR ---
HAND-OFF: Report given to Dmitri Thompson RN. Patient is stable.
--- NOTE | 2018-07-14 19:30 | NUR ---
NURSE NOTES: Received report from JOAQUIN Higuera and rounds made. Received pt laying in bed, AOX4, pain level 3/10, pt refused pain medication at this time. L knee surgical dressing C/D/I. On CPM vern 0-50. Tolerated without any c/o pain. Pt refused SCD. Safety measures maintained. Will continue to monitor.
[2018-07-14 20:00] VITALS: BP 133/81
[2018-07-15 05:00] VITALS: BP 126/82
--- NOTE | 2018-07-15 06:00 | NUR ---
NURSE NOTES: Left knee dressing with dry stain. Dressing change done. Applied 4x4 and tegaderm.
--- NOTE | 2018-07-15 07:14 | NUR ---
HAND-OFF: Report given to JOAQUIN Harden. Pt in stable condition.
--- NOTE | 2018-07-15 07:14 | NUR ---
NURSE NOTES:BEDSIDE ROUNDS WITH NIGHT RN(NEYMAR)C/O HEADACHE,BUR WANTS NORCO AFTER BREAKFAST.CLAIMS IT HAPPENS IN MORNING TIME AFTER HE WAKES UP.LEFT KNEE DRSNG.CLEAN/DRY/INTACT.WILL CONTINUE PLAN OF CARE.
[2018-07-15] MEDS: HYDROcodone/Acetamin 7.5/325 tab ORAL PRN ×2 (07:40→12:32)
[2018-07-15] MEDS: Docusate 100mg cap ORAL SCH (08:04)
[2018-07-15] MEDS: Lisinopril 10mg tab ORAL SCH (08:04)
[2018-07-15] MEDS: Enoxaparin 40mg Inj SUBQ SCH (08:08)
[2018-07-15 08:14] VITALS: BP 138/89
--- NOTE | 2018-07-15 11:00 | NUR ---
NURSE NOTES:ambulated with physical therapy using walker.used cpm on 55 deg.
--- NOTE | 2018-07-15 11:30 | NUR ---
PT NOTE Patient placed on CPM at 0-55 degrees (patient previously 0-50 degrees) with good alignment. Patient unable to tolerate further increase in ROM at this time. Patient states that he will increase ROM as tolerated. Will follow up with patient in the p.m.
[2018-07-15 11:56] VITALS: BP 122/80
--- NOTE | 2018-07-15 12:17 | NUR ---
NURSE NOTES:SPOKE WITH DR. MYERS RE:CLEARANCE FOR D/C AND HOME MEDS.INFORMED ALSO ABOUT PATIENTS HEADCHE EVERY MORNING.NO ORDER.
--- NOTE | 2018-07-15 13:30 | NUR ---
NURSE NOTES:SPOKE TO [facility] OFFICE RE:PATIENT WANTS TO GO HOME,PHARMACY NOS GIVEN TO [facility],AND ALSO NEEDS OFFICIAL ORDER FOR D/C,AND PATIENT WANTS A NOTE FR. [facility]ARRO FOR PT AT [facility].
--- NOTE | 2018-07-15 13:45 | NUR ---
CASE MANAGEMENT:REVIEW 07/15/2018 SI: POD #5 S/P LEFT KNEE ARTHROPLASTY T 98.5 92 19 122/80 97% ON RA IS: LOVENOX SQ QD COLACE PO BID LISINOPRIL PO QD NORCO PO Q4HRS PRN IV MORPHINE Q4HRS PRN : MED/SURG STATUS 3 EAST DCP; FROM HOME
[2018-07-15 15:57] VITALS: BP 134/81
--- NOTE | 2018-07-15 16:04 | NUR ---
NURSE NOTES:d/c instructions given including raise toilet seat ,verbalized understanding.per patient he received an email office to see him today at 5pm.d/c to home picked up by son(harmeet).brianna.
--- NOTE | 2018-07-17 10:44 | Discharge Summary ---
Discharge Summary Hospital Course Date of Admission July 10, 2018 at 07:45 Date of Discharge Jul 15, 2018 at 16:30 Admitting Diagnosis end stage osteoarthritis left knee Reason for Hospitalization: elective surgery HPI Lilli Martinez is a 53 year old male who was admitted on July 10, 2018 at 07: 45 for Left Knee Osteoarthritis End Stage. Patient was admitted for elective surgery. Consultations Dr Moreno - IM/cardio Procedures s/p 07/10/[address] Perez 1. Left total knee replacement, 2. Removal of hardware. 3. Reconstruction of the proximal tibia. Hospital Course status post surgery course of recovery uneventful initially IV fluids s/p perioperative antibiotics neurovascular status closely monitored, remained stable patient initially with Hemovac drain with large amount of serosanguineous fluid output was closely monitored hemoglobin and hematocrit closely monitored with goal to keep hemoglobin above 7 drain output slowed down , subsequently Hemovac was discontinued by surgeon first dressing changed by surgeon prior to discharge hemoglobin 9.7 , hematocrit 27.9 incision with dressing clean , dry, and intact pain management addressed , and pain controlled hemodynamically stable ambulated with PT fall precautions maintained; safe for ambulation DVT prophylaxis provided with Lovenox ( stopped temporarily while high output from Hemovac and then resumed0 use of incentive spirometry was encouraged while in the bed f tolerated diet , IV fluids discontinued GI prophylaxis provided antiemetics were on board as needed blood pressure was closely monitored and remained stable voided freely, after Anderson catheter discontinued bowel regimen instituted pathology of bone and tissue of left knee consistent with degenerative joint disease patient was stable for discharge discharge instructions provided follow up with surgeon as outpatient as advised by surgeon FINAL DIAGNOSES End stage osteoarthritis left knee s/p left total knee replacement Hypertension. Hyperlipidemia. Postoperative bleeding Discharge Medications Continued Medications: Bisoprolol Fumarate/Hctz (Bisoprolol-Hctz 10-6.25 Mg Tab) 1 Each Tablet 1 EACH PO DAILY, TAB (This prescription has been renewed) Lisinopril (Lisinopril*) 20 Mg Tablet 10 MG ORAL DAILY, TAB (This prescription has been renewed) Rosuvastatin Calcium* (Crestor*) 10 Mg Tablet 10 MG ORAL DAILY, TAB (This prescription has been renewed) Discharge Condition Upon Discharge: stable Discharge Disposition Patient was discharged home Discharge Instructions Discharge Instructions Special Instructions I have been assigned to complete a D/C Summary on this account. I was not involved in the patient management Jannie Valencia NP Jul 17, 2018 10:44
== END 2018-07-15 16:30 | disposition home or self-care (01) | DRG 470 ==
LOC: SDSOVERFLO 07:45 → 3E 11:38
PROC: 0QPH04Z Removal of Internal Fixation Device from Left Tibia, Open Approach (ICD-10-PCS; principal; 2018-07-13)
PROC: 0SRD0J9 Replacement of Left Knee Joint with Synthetic Substitute, Cemented, Open Approach (ICD-10-PCS; principal; 2018-07-13)
DX: M17.12 Unilateral primary osteoarthritis, left knee (principal); M96.830 Postprocedural hemorrhage of a musculoskeletal structure following a musculoskeletal system procedure; I10 Essential (primary) hypertension; E78.5 Hyperlipidemia, unspecified
CPT/HCPCS: 36415; 80048; 80053; 85007; 85025; 85610; 86850; 86900; 86901; 86920; 87081; 94003; 94150; J2250; J2405; J2765